=== PATIENT | female | born 1965 ===

== ENCOUNTER 2017-01-14 13:57 | Emergency (ER) | payer MEDICAID ==
[2017-01-14 14:03] VITALS: BP 129/73; PULSE 67; RESP 16; TEMP 98; O2SAT 97
--- NOTE | 2017-01-14 14:38 | ED PDOC ---
HPI: Trauma/Fall - HPI Time Seen by Provider: 01/14/17 14:20 Chief Complaint (Nursing): Back Pain Chief Complaint (Provider): Hand Pain/Knee Pain/Back Pain History Per: Patient History/Exam Limitations: no limitations Location Of Injury: Right: Hand, Knee, Left: Hand, Knee, Anterior: Face, Posterior: Neck Additional Complaint(s): Joselyn Amezcua is a 51 year old female that presents to the ED after tripping and falling on a piece of wood on the sidewalk earlier today. Patient reports that she landed on her hands and knee and grazed her face on the floor, but denies loss of consciousness. Patient reports neck pain, bilateral hand pain, bilateral knee pain, and nausea. She denies use of anticoagulants and reports tetanus is not UTD. Past Medical History Reviewed: Historical Data, Nursing Documentation, Vital Signs Vital Signs: Last Vital Signs Temp 98.0 F 01/14/17 14:00 Pulse 67 01/14/17 14:00 Resp 16 01/14/17 14:00 BP 129/73 01/14/17 14:00 Pulse Ox 97 01/14/17 14:00 - Medical History PMH: Asthma - Family History Family History: States: Unknown Family Hx - Immunization History Hx Tetanus Toxoid Vaccination: No - Allergies Allergies/Adverse Reactions: Allergies Allergy/AdvReac Type Severity Reaction Status Date / Time sesame seed Allergy URTICARIA Verified 01/14/17 13:59 Review of Systems Gastrointestinal: Positive for: Nausea Musculoskeletal: Positive for: Neck Pain, Hand Pain (b/l), Leg Pain (knee pain b /l) Physical Exam - Reviewed Nursing Documentation Reviewed: Yes Vital Signs Reviewed: Yes - Physical Exam Appears: Positive for: Non-toxic, No Acute Distress Head Exam: Positive for: ATRAUMATIC, NORMOCEPHALIC ENT: Positive for: Other (Ecchymosis present to right lateral jaw, but patient is able to open and close jaw without pain or difficulty. ) Neck: Positive for: Decreased ROM (slight, due to pain). Negative for: Normal ( Paracervical TTP noted to lower cervical area) Cardiovascular/Chest: Positive for: Regular Rate, Rhythm, Chest Non Tender. Negative for: Murmur Respiratory: Positive for: Normal Breath Sounds. Negative for: Wheezing Gastrointestinal/Abdominal: Positive for: Normal Exam, Soft. Negative for: Tenderness Extremity: Positive for: Tenderness (TTP b/l lower extremities and thenar aspect of hands. ), Other (Abrasions to left knee. No ecchymosis to b/l hands, patient is able to move all digits w/o difficulty.). Negative for: Normal ROM - ECG O2 Sat by Pulse Oximetry: 97 (RA) Pulse Ox Interpretation: Normal - Progress ED Course And Treament: XRY BILATERAL KNEE: NEG FOR FX XRY BILATERAL HAND: NEG FOR FX CT HEAD: NEG CT C SPINE: NEG FOR FX TDAP 0.5 ML IM X 1 DOSE ACETAMINOPHEN 975MG X 1 DOSE Medical Decision Making Medical Decision Making: Impression: Neck, Bilateral Hand and Knee Injuries as a Result of Fall Plan: * CT Scan C-Spine * CT Scan Head w/o contrast * X-Ray Hands b/l * X-Ray Knees b/l * Tylenol 975 mg PO * Zofran 4 mg PO * Tetanus 0.5 ml IM * Reevaluation Scribe Attestation: Documented by Thao Solomon, acting as a scribe for Carlton Marks PA-C. Provider Scribe Attestation: All medical record entries made by the Scribe were at my direction and personally dictated by me. I have reviewed the chart and agree that the record accurately reflects my personal performance of the history, physical exam, medical decision making, and the department course for this patient. I have also personally directed, reviewed, and agree with the discharge instructions and disposition. Disposition - Clinical Impression Clinical Impression: Fall, Neck strain, Knee contusion, Abrasion, Hand contusion - Patient ED Disposition Is Patient to be Admitted: No - Disposition Referrals: [facility] [Outside] Disposition: Routine/Home Disposition Time: 17:33 Condition: FAIR Instructions: Head Injury (ED), Contusion in Adults (DC), Abrasion (ED) Forms: [employer] (Bulgarian)
--- NOTE | 2017-01-14 16:07 | RAD ---
PROCEDURE: Left and right knee x-ray bilateral HISTORY: KNEE CONTUSION COMPARISON: No prior TECHNIQUE: Four views of the left and right knee were performed. FINDINGS: There is degenerate joint disease appreciated in the right knee and to a lesser degree in the left knee. No fracture is seen. No dislocation of the patella is noted. No joint effusions are seen. Mild diffuse osteopenia is identified. No erosions are seen. No loose bodies are seen. IMPRESSION: No evidence of fracture. Degenerative joint disease.
--- NOTE | 2017-01-14 16:08 | RAD ---
PROCEDURE: Right and left hand x-ray HISTORY: HAND INJURY COMPARISON: No prior TECHNIQUE: Three views of the right and left hand were performed. No fracture is seen. No dislocation is noted. Degenerative changes are noted bilaterally without erosion. Visualized soft tissues are unremarkable. Carpal bones are intact. Distal radius and ulna are intact. Impression: No appreciable fracture. FINDINGS: See above IMPRESSION: No fracture.
--- NOTE | 2017-01-14 16:58 | CT ---
PROCEDURE: CT HEAD WITHOUT CONTRAST. HISTORY: HEAD INJURY COMPARISON: None available. TECHNIQUE: Axial computed tomography images were obtained through the head/brain without intravenous contrast. Radiation dose: Total exam DLP = 1672 mGy-cm. This CT exam was performed using one or more of the following dose reduction techniques: Automated exposure control, adjustment of the mA and/or kV according to patient size, and/or use of iterative reconstruction technique. FINDINGS: HEMORRHAGE: No intracranial hemorrhage. BRAIN: No mass effect or edema. No atrophy or chronic microvascular ischemic changes. VENTRICLES: Unremarkable. No hydrocephalus. CALVARIUM: Unremarkable. PARANASAL SINUSES: Unremarkable as visualized. No significant inflammatory changes. MASTOID AIR CELLS: Unremarkable as visualized. No inflammatory changes. OTHER FINDINGS: None. IMPRESSION: No evidence of recent infarct or intracranial hemorrhage.
--- NOTE | 2017-01-14 17:04 | CT ---
PROCEDURE: CT Cervical Spine without contrast HISTORY: Cervical spine neck pain, inferior x-ray exam COMPARISON: None available. TECHNIQUE: Axial computed tomography images were obtained of the cervical spine without the use of intravenous contrast. Coronal and sagittal reformatted images were created and reviewed. Radiation dose: Total exam DLP = 604 mGy-cm. This CT exam was performed using one or more of the following dose reduction techniques: Automated exposure control, adjustment of the mA and/or kV according to patient size, and/or use of iterative reconstruction technique. FINDINGS: VERTEBRAE: No fracture. No malalignment. . No destructive bony lesion. DISCS/SPINAL CANAL/NEURAL FORAMINA: No significant central canal or neural foraminal stenosis. There is evidence of mild multilevel degenerative disc disease with disc space narrowing and mild endplate spurring. Mild disc bulging is appreciated. No definite abnormal impression upon the cord however is noted. Mild amounts of bony neural foraminal narrowing are noted. C1-C2 articulation is within normal limits. No jumped facets are seen. PARASPINAL SOFT TISSUES: No prevertebral soft tissue swelling. No appreciable adenopathy. Thyroid gland is unremarkable. Thoracic inlet is within normal limits. OTHER FINDINGS: Lung apices show no evidence of pneumothorax or infiltrate. IMPRESSION: No evidence of fracture or malalignment.
== END 2017-01-14 18:01 | disposition home or self-care (01) ==
LOC: H.ER 13:57
DX: M54.9 Dorsalgia, unspecified (principal); S09.90XA Unspecified injury of head, initial encounter; T14.8XXA Other injury of unspecified body region, initial encounter; W19.XXXA Unspecified fall, initial encounter; Y92.410 Unspecified street and highway as the place of occurrence of the external cause